=== PATIENT | female | born 1980 | race Caucasian/White ===

== ENCOUNTER → 2017-05-12 | Outpatient (CLI) | payer OTHER ==
[2017-05-12 11:32] LABS: CH 29.5; CHCM 34.8; HCT 37.8 % (34.0-46.0); HDW 2.32; MCH 29.3 pg (25.0-35.0); MCHC 34.4 g/dL (31.0-37.0); MCV 85.2 fL (80.0-100.0); Mean Platelet Volume 6.8; RBC 4.43 m/uL (3.80-5.40); RDW 14.2 % (11.5-15.5); WBC 8.6 k/uL (3.8-10.6)
[2017-05-12 12:23] LABS: Glucose 94 mg/dL (74-99); Non-African American GFR(MDRD) >60 (>60 ml/min/1.73 sqM)
[2017-05-12 12:55] LABS: Hepatitis B Surface Ag Index 0.04
== END ==
LOC: LABWHC1 11:04
PROVIDERS: ATTEND Obstetrics & Gynecology
DX: Z34.90 Encounter for supervision of normal pregnancy, unspecified, unspecified trimester (principal)
CPT/HCPCS: 36415; 82565; 82947; 85027; 86762; 86780; 86850; 86900; 86901; 87340

== ENCOUNTER → 2017-07-12 | Outpatient (CLI) | payer OTHER ==
[2017-07-13 13:58] LABS: Alpha Fetoprotein 52.5 ng/mL; Alpha Fetoprotein (M.O.M) 0.98 (Negative); B-HCG (M.O.M.) 1.31; Gestational Age (days) 3; Human Chorionic Gonadotropin 19.7 IU/mL; Inhibin A (M.O.M.) 1.25; Interpretation SeeBelow; Maternal Age at EDD (Yrs) 38; Smoker No; Unconjugated Estriol (M.O.M.) 0.57
== END ==
LOC: LABWHC1 15:55
PROVIDERS: ATTEND Obstetrics & Gynecology
DX: Z34.92 Encounter for supervision of normal pregnancy, unspecified, second trimester (principal); Z3A.00 Weeks of gestation of pregnancy not specified
CPT/HCPCS: 36415; 82105; 82677; 84702; 86336

== ENCOUNTER → 2017-07-27 | Outpatient (CLI) | payer OTHER ==
[2017-07-27 09:41] LABS: CH 31.5; CHCM 35.3; HCT 34.2 % (34.0-46.0); HDW 2.74; HGB 11.8 gm/dL (11.4-16.0); MCH 30.9 pg (25.0-35.0); MCHC 34.4 g/dL (31.0-37.0); MCV 89.9 fL (80.0-100.0); Mean Platelet Volume 7.8; RDW 14.4 % (11.5-15.5); WBC 10.1 k/uL (3.8-10.6)
== END | disposition home or self-care (01) ==
LOC: LABWHC1 08:30
PROVIDERS: ATTEND Obstetrics & Gynecology
DX: Z34.82 Encounter for supervision of other normal pregnancy, second trimester (principal)
CPT/HCPCS: 36415; 82950; 85027

== ENCOUNTER → 2017-08-09 | Outpatient (CLI) | payer OTHER ==
[2017-08-09 13:34] LABS: Glucose 3 Hour, Gest 114 mg/dL
== END | disposition home or self-care (01) ==
LOC: LABWHC1 08:32
PROVIDERS: ATTEND Obstetrics & Gynecology
DX: O99.810 Abnormal glucose complicating pregnancy (principal); Z3A.00 Weeks of gestation of pregnancy not specified
CPT/HCPCS: 36415; 82951; 82952

== ENCOUNTER 2017-10-06 02:54 | Outpatient (CLI) | payer OTHER ==
[2017-10-06 04:05] VITALS: BP 129/77; PULSE 96; RESP 16; TEMP 97.2
--- NOTE | 2017-10-09 06:43 | P.MSEPDOC ---
Presenting Problems - Arrival Data Date of Arrival on Unit: 10/06/17 Time of Arrival on Unit: 02:54 Mode of Transport: Wheelchair - Complaint OB-Reason for Admission/Chief Complaint: Rule Out SROM Medical History - Information : 3 Para: 2 Term: 2 : 0 Abortions: Spontaneous or Elective: 0 Number of Living Children: 2 - Gestational Age Gestational Age by DANN (wks/days): 34 Weeks and 0 Days - History Complications: Prior Review of Systems - Review of Systems Constitutional: No problems Breast: No problems ENT: No problems Cardiovascular: No problems Respiratory: No problems Gastrointestinal: No problems Genitourinary: No problems Musculoskeletal: No problems Neurological: No problems Skin: No problems Vital Signs - Temperature Temperature: 97.2 F Temperature Source: Temporal Artery Scan - Pulse Right Brachial Pulse Rate: 96 Pulse Assessment Method: Automatic Cuff - Respirations Respiratory Rate: 16 Oxygen Delivery Method: Room Air - Blood Pressure Right Arm Blood Pressure: 129/77 Blood Pressure Mean: 94 Blood Pressure Source: Automatic Cuff Medical Screen Scoring (Pre) - Cervical Exam Dilation: Exam Deferred Effacement: Exam Deferred Membranes: Intact - Uterine Contractions Frequency: N/A Duration: N/A Intensity: N/A - Maternal Vital Signs Maternal Temperature: N/A Signs of Preeclampsia: N/A Maternal Respirations: N/A - Maternal Trauma Maternal Trauma: N/A - Assessment Baseline FHR: 150 Heart Rate - NICHD Category: Category I (Normal) = 0 NST: Reactive Position: N/A Station: N/A - Total Score Total Score (Pre): 0 - Level of Risk Level of Risk: Low (0-5) Physician Notification (Pre) - Physician Notified Physician Notified Date: 10/06/17 Physician Notified Time: 03:31 Physician/Practitioner Notifed:: Dr. Masters Spoke With: Dr. Masters New Order Received: Yes (D/c pt to home) - Notification Comment Comment: reviewed and cosigned by this RN Disposition - Disposition OB Disposition: Discharge to home, Written follow up instructions reviewed Discharge Date: 10/06/17 Discharge Time: 03:43 I agree with the RN Medical Screening Exam: Yes Risk & Benefit of care provided described in d/c instruction: Yes Diagnosis: FALSE LABOR, UNSPECIFIED
== END 2017-10-06 03:43 | disposition home or self-care (01) ==
LOC: FBPOP 02:54
PROVIDERS: ATTEND Obstetrics & Gynecology
DX: O47.9 False labor, unspecified (principal); Z3A.34 34 weeks gestation of pregnancy
CPT/HCPCS: 59025; 84112; 99213

== ENCOUNTER 2017-10-06 04:17 | Outpatient (CLI) | payer OTHER ==
[2017-10-06 06:01] VITALS: BP 126/76; PULSE 98; RESP 16; TEMP 97.1
--- NOTE | 2017-10-06 06:19 | US ---
EXAM: US Uterus, Limited. CLINICAL HISTORY: Reason: JON TECHNIQUE: Real-time ultrasound of the maternal uterus (limited) with image documentation. COMPARISON: No relevant prior studies available. FINDINGS: Gravid uterus with fetus in cephalic presentation. Amniotic fluid volume is within normal limits for gestational age of 34 weeks and 0 days. A four-quadrant amniotic fluid index of 11.4 cm was detected. Normal cardiac activity with heart rate of 147 bpm. The cervix is closed and measures 3.7 cm in length. IMPRESSION: Amniotic fluid volume is within normal limits for stated gestational age.
--- NOTE | 2017-10-09 06:43 | P.MSEPDOC ---
Presenting Problems - Arrival Data Date of Arrival on Unit: 10/06/17 Time of Arrival on Unit: 04:18 Mode of Transport: Ambulatory - Complaint OB-Reason for Admission/Chief Complaint: Other Comment: pt presents back to triage- Dr Masters called shortly after pt was discharged. requesting that RN call pt back and have an u/s completed in triage for JON. pt was. called, and returned. Medical History - Information : 3 Para: 2 Term: 2 : 0 Abortions: Spontaneous or Elective: 0 Number of Living Children: 2 - Gestational Age Gestational Age by DANN (wks/days): 34 Weeks and 0 Days - History Complications: Prior Review of Systems - Review of Systems Constitutional: No problems Breast: No problems ENT: No problems Cardiovascular: No problems Respiratory: No problems Gastrointestinal: No problems Genitourinary: No problems Musculoskeletal: No problems Neurological: No problems Skin: No problems Vital Signs - Temperature Temperature: 97.1 F Temperature Source: Temporal Artery Scan - Pulse Right Brachial Pulse Rate: 98 Pulse Assessment Method: Automatic Cuff - Respirations Respiratory Rate: 16 Oxygen Delivery Method: Room Air O2 Sat by Pulse Oximetry: 97 - Blood Pressure Right Arm Blood Pressure: 126/76 Blood Pressure Mean: 92 Blood Pressure Source: Automatic Cuff Medical Screen Scoring (Pre) - Cervical Exam Dilation: Exam Deferred Effacement: Exam Deferred Membranes: Intact - Uterine Contractions Frequency: N/A Duration: N/A Intensity: N/A - Maternal Vital Signs Maternal Temperature: N/A Maternal Blood Pressure: N/A Signs of Preeclampsia: N/A Maternal Respirations: N/A - Assessment Baseline FHR: 145 Heart Rate - NICHD Category: Category I (Normal) = 0 NST: Reactive Position: N/A Station: N/A - Total Score Total Score (Pre): 0 - Level of Risk Level of Risk: Low (0-5) Physician Notification (Pre) - Physician Notified Physician Notified Date: 10/06/17 Physician Notified Time: 05:39 Physician/Practitioner Notifed:: Dr. Masters Spoke With: Dr. Masters New Order Received: Yes (D/c pt to home) - Notification Comment Comment: MSE reviewed by this RN Disposition - Disposition OB Disposition: Discharge to home, Written follow up instructions reviewed Discharge Date: 10/06/17 Discharge Time: 05:53 I agree with the RN Medical Screening Exam: Yes Risk & Benefit of care provided described in d/c instruction: Yes Diagnosis: FALSE LABOR, UNSPECIFIED
== END 2017-10-06 05:53 | disposition home or self-care (01) ==
LOC: FBPOP 04:17
PROVIDERS: ATTEND Obstetrics & Gynecology
DX: O47.9 False labor, unspecified (principal); Z3A.34 34 weeks gestation of pregnancy
CPT/HCPCS: 59025; 76815; 99213